=== PATIENT | female | born 1995 | race Caucasian/White ===

== ENCOUNTER 2018-08-12 01:16 | Emergency (ER) | payer OTHER ==
[~2018-08-12] VITALS: Ht 170.2 cm; Wt 61.2 kg
[~2018-08-12 01:16] MED LIST: ALLERGY SHOTS; IRON240 MG PO; PRENATAL VITAM1 EAC7 PO; TRI-LINYAH1 EACH PO
[2018-08-12] MEDS ORDERED: KEFLEX500 MG PO (01:34)
== END 2018-08-12 01:38 | disposition home or self-care (01) ==
LOC: ED 01:16
DX: N61.0 Mastitis without abscess (principal)
CPT/HCPCS: 99283

== ENCOUNTER 2019-01-26 13:24 | Emergency (ER) | payer OTHER ==
[~2019-01-26] VITALS: Ht 170.2 cm; Wt 61.2 kg
[~2019-01-26 13:24] MED LIST changes: +KEFLEX500 MG PO
[2019-01-26] MEDS ORDERED: MORPHINE SULFAT15 MG PO (18:34)
[2019-01-26] MEDS ORDERED: ZOFRAN4 MG PO (18:34)
[2019-01-26] MEDS ORDERED: LEXAPRO5 MG PO (19:07)
--- NOTE | 2019-01-27 14:08 | EKG ---
[facility] [address] [facility] [place], [place] [address] Signed Normal sinus rhythm Normal ECG No previous ECGs available Confirmed by CAROLE DELGADO DO ([id number]) on 01/27/2019 2:07:45 PM Electronically Signed By: CAROLE DELGADO DO 01/27/19 1408 PATIENT NAME: AZUL BASS Electrocardiogram DATE OF : [birth year] PHYSICIAN: CAROLE DELGADO DO REPORT #: [id number] REPORT IS CONFIDENTIAL AND NOT TO BE RELEASED WITHOUT AUTHORIZATION
== END 2019-01-26 18:44 | disposition home or self-care (01) ==
LOC: ED 13:24
DX: S22.22XA Fracture of body of sternum, initial encounter for closed fracture (principal); V89.2XXA Person injured in unspecified motor-vehicle accident, traffic, initial encounter; W22.10XA Striking against or struck by unspecified automobile airbag, initial encounter
CPT/HCPCS: 71046; 71120; 71260; 74177; 80053; 83690; 84484; 84703; 85025; 93005; 93010; 99285-25; J1885; J2060; J7030; Q9967

== ENCOUNTER 2019-11-10 23:42 | Inpatient (IN) | payer OTHER ==
[~2019-11-10] VITALS: Ht 170.2 cm; Wt 79.0 kg
[~2019-11-10 23:42] MED LIST changes: +LEXAPRO5 MG PO; +MORPHINE SULFAT15 MG PO; +ZOFRAN4 MG PO
[2019-11-11] MEDS ORDERED: PRENATAL VITAM1 EAC6 PO (00:16)
--- NOTE | 2019-11-11 01:17 | PR ---
[facility] [address] [facility] [place], [place] [address] Signed Progress Notes IP Datetime Report Generated by CPN: 11/11/2019 01:17 PROGRESS NOTES: [id number] Impression: Normal progression of labor Procedures: Artificial ROM; Scalp Electrode Plan: Continue present management; Anticipate Vaginal Delivery VITAL SIGNS: [id number] Vital Signs: Reviewed; Within Normal Limits EXAM: [id number] Dilatation: 7.0 Effacement: 90 Station: -2 Uterine Contractions: every 1-3 minutes MEMBRANES: [id number] Membrane Status: Ruptured Amniotic Fluid Color: Clear ROM Note: AROM without difficulty. Small amount clear fluid returned. Comments: Comfortable with Epidural Fetus A: [id number] FHR Baseline: 135 Variability: Moderate 6-25bpm Accelerations: 15X15 Decelerations: None Presentation: Vertex Fetus B: [id number] Signing Physician: Josie Morataya MD Copies: ~ *Electronically Signed* 11/11/19 0117 JOSIE MORATAYA MD PATIENT NAME: AZUL BASS PROGRESS NOTE DATE OF : [birth year] PHYSICIAN: JOSIE MORATAYA MD RPT #: [id number] REPORT IS CONFIDENTIAL AND NOT TO BE RELEASED WITHOUT AUTHORIZATION
--- NOTE | 2019-11-11 12:07 | PR ---
[facility] [address] [facility] [place] [address] Signed PP Progress Notes Datetime Report Generated by CPN: 11/11/2019 12:07 SUBJECTIVE: [id number] Pain: Within normal limits Nausea/Vomiting: Denies Vital Signs: [id number] Vital Signs: Reviewed; Within Normal Limits EXAM: [id number] Abdomen/Uterus: Normal Lochia: Normal Extremities: Normal IMPRESSION/PLAN/PROCEDURES: [id number] Impression: Normal progression Plan: Continue present management Procedures: None Progress Notes: Doing well, without complaint, wants to go home tomorrow morning. Signing Physician: Josie Morataya MD Copies: ~ *Electronically Signed* 11/11/19 1207 JOSIE MORATAYA MD PATIENT NAME: AZUL BASS PROGRESS NOTE DATE OF : [birth year] PHYSICIAN: JOSIE MORATAYA MD RPT #: [id number] REPORT IS CONFIDENTIAL AND NOT TO BE RELEASED WITHOUT AUTHORIZATION
--- NOTE | 2019-11-12 07:27 | PR ---
[facility] [address] [facility] [place] [address] Signed PP Progress Notes Datetime Report Generated by CPN: 11/12/2019 07:27 SUBJECTIVE: [id number] Pain: Within normal limits Nausea/Vomiting: Denies Vital Signs: [id number] Vital Signs: Reviewed; Within Normal Limits Notable Details: PP Hgb/Hct = 9.9/29.5 EXAM: [id number] Abdomen/Uterus: Normal Lochia: Normal Extremities: Normal IMPRESSION/PLAN/PROCEDURES: [id number] Impression: Normal progression Plan: Discharge Procedures: None Progress Notes: Doing well, without complaint, wants to go home. Signing Physician: Josie Morataya MD Copies: ~ *Electronically Signed* 11/12/19 0727 JOSIE MORATAYA MD PATIENT NAME: AZUL BASS PROGRESS NOTE DATE OF : [birth year] PHYSICIAN: JOSIE MORATAYA MD RPT #: [id number] REPORT IS CONFIDENTIAL AND NOT TO BE RELEASED WITHOUT AUTHORIZATION
== END 2019-11-12 08:55 | disposition home or self-care (01) | DRG 807 ==
LOC: FBCO 23:42 → FBC 11-11 00:07
PROVIDERS: ADMIT General Practice
PROC: 10E0XZZ Delivery of Products of Conception, External Approach (ICD-10-PCS; principal; 2019-11-11)
PROC: 0KQM0ZZ Repair Perineum Muscle, Open Approach (ICD-10-PCS; 2019-11-11)
PROC: 10907ZC Drainage of Amniotic Fluid, Therapeutic from Products of Conception, Via Natural or Artificial Opening (ICD-10-PCS; 2019-11-11)
PROC: 00HU33Z Insertion of Infusion Device into Spinal Canal, Percutaneous Approach (ICD-10-PCS; 2019-11-11)
PROC: 3E0R3BZ Introduction of Anesthetic Agent into Spinal Canal, Percutaneous Approach (ICD-10-PCS; 2019-11-11)
DX: O69.81X0 Labor and delivery complicated by cord around neck, without compression, not applicable or unspecified (principal); Z37.0 Single live birth; Z3A.38 38 weeks gestation of pregnancy; O70.1 Second degree perineal laceration during delivery; O99.52 Diseases of the respiratory system complicating childbirth; J30.2 Other seasonal allergic rhinitis; Z79.899 Other long term (current) drug therapy
CPT/HCPCS: 01960; 36415; 85027; A9270; J2590; J2795; J3010; J7121

== ENCOUNTER 2022-04-28 00:03 | Inpatient (IN) | payer OTHER ==
[~2022-04-28] VITALS: Ht 170.2 cm; Wt 80.3 kg
[~2022-04-28 00:03] MED LIST changes: +PRENATAL VITAM1 EAC6 PO
--- NOTE | 2022-04-28 09:30 | PR ---
[facility] [place] [facility] [address] [place], [place] [address] Signed Progress Notes IP Datetime Report Generated by CPN: 04/28/2022 09:29 PROGRESS NOTES: [id number] Impression: Normal Progression of Labor; Reassuring Heart Rate Procedures: Artificial ROM; Sterile Vag Exam Plan: Continue Present Management Informed Consent Obtain: Vaginal Delivery VITAL SIGNS: [id number] Vital Signs: Reviewed VS Notable Details: One slightly elevated BP as pt preparing for epidural EXAM: [id number] Dilatation: 3.5 Effacement: 75 Station: -2 Contractions: rare MEMBRANES: [id number] Comments: Pt seen and examined. Doing well. Comfortable w/ epidural. Discussed AROM and verbal consent obtained. Reviewed vertex well applied and bulging membranes. Cx very soft in consistency. AROM performed easily for moderate amount of meconium stained fluid. Reviewed w/ pt. Anticpate . Discussed indications for internal monitor or augmentation w/ pitocin. All questions answered. FETUS A: [id number] FHR Baseline: 130 Variability: Moderate 6-25bpm Accelerations: 15X15 Decelerations: None FHR Category: Category I Presentation: Vertex Comments on Fetus A: No evidence of metabolic acidosis FETUS B: [id number] Signing Physician: Nory Feliz DO Copies: ~ *Electronically Signed* 04/28/22 0929 NORY FELIZ (GAGANDEEP) DO PATIENT NAME: AZUL BASS PROGRESS NOTE DATE OF : [birth year] PHYSICIAN: NORY FELIZ) DO RPT #: [id number] REPORT IS CONFIDENTIAL AND NOT TO BE RELEASED WITHOUT AUTHORIZATION
--- NOTE | 2022-04-28 11:08 | PR ---
[facility] [address] [place], [place] [address] Signed Progress Notes IP Datetime Report Generated by CPN: 04/28/2022 11:08 PROGRESS NOTES: [id number] Impression: Normal Progression of Labor; Reassuring Heart Rate Procedures: Intrauterine Pressure Catheter; Sterile Vag Exam Plan: Continue Present Management Other Plans: Consider augmentation Informed Consent Obtain: Vaginal Delivery VITAL SIGNS: [id number] Vital Signs: Reviewed VS Notable Details: One slightly elevated BP as pt preparing for epidural EXAM: [id number] Dilatation: 3.5 Effacement: 75 Station: -2 Contractions: rare MEMBRANES: [id number] Comments: Pt seen and examined. Comfortable w/ epidural. No cervical change and rare CTXs. Recommended IUPC insertion and consider augmentation if needed. Pt agrees. IUPC placed w/out difficulty. All questions answered FETUS A: [id number] FHR Baseline: 130 Variability: Moderate 6-25bpm Accelerations: 15X15 Decelerations: None FHR Category: Category I Presentation: Vertex Comments on Fetus A: No evidence of metabolic acidosis FETUS B: [id number] Signing Physician: Nory Feliz DO Copies: ~ *Electronically Signed* 04/28/22 8494 NORY FELIZ (GAGANDEEP) DO PATIENT NAME: AZUL BASS PROGRESS NOTE DATE OF : [birth year] PHYSICIAN: NORY FELIZ) DO RPT #: [id number] REPORT IS CONFIDENTIAL AND NOT TO BE RELEASED WITHOUT AUTHORIZATION
--- NOTE | 2022-04-28 14:58 | PR ---
[facility] [address] [facility] [place], [place] [address] Signed Progress Notes IP Datetime Report Generated by CPN: 04/28/2022 14:58 PROGRESS NOTES: [id number] Impression: Normal Progression of Labor; Reassuring Heart Rate Procedures: Sterile Vag Exam Plan: Anticipate Vaginal Delivery Other Plans: Consider augmentation Informed Consent Obtain: Vaginal Delivery VITAL SIGNS: [id number] Vital Signs: Reviewed VS Notable Details: One slightly elevated BP as pt preparing for epidural EXAM: [id number] Dilatation: 10.0 Effacement: 100 Station: -1 Contractions: rare MEMBRANES: [id number] Comments: Pt seen and examined. Doing well. Complete and comfortable w/ epidural. Anticpate soon. FETUS A: [id number] FHR Baseline: 130 Variability: Moderate 6-25bpm Accelerations: 15X15 Decelerations: None FHR Category: Category I Presentation: Vertex Comments on Fetus A: No evidence of metabolic acidosis FETUS B: [id number] Signing Physician: Nory Feliz DO Copies: ~ *Electronically Signed* 04/28/22 1455 NORY FELIZ (GAGANDEEP) DO PATIENT NAME: BASSAZUL RECORD #: [id number] PROGRESS NOTE DATE OF : [birth year] PHYSICIAN: NORY FELIZ (GAGANDEEP) DO RPT #: [id number] REPORT IS CONFIDENTIAL AND NOT TO BE RELEASED WITHOUT AUTHORIZATION
== END 2022-04-29 16:25 | disposition home or self-care (01) | DRG 807 ==
LOC: FBC 00:03
PROVIDERS: ADMIT Obstetrics & Gynecology; ATTEND Obstetrics & Gynecology
PROC: 10E0XZZ Delivery of Products of Conception, External Approach (ICD-10-PCS; principal; 2022-04-28)
PROC: 0KQM0ZZ Repair Perineum Muscle, Open Approach (ICD-10-PCS; 2022-04-28)
PROC: 10H07YZ Insertion of Other Device into Products of Conception, Via Natural or Artificial Opening (ICD-10-PCS; 2022-04-28)
PROC: 3E0R3BZ Introduction of Anesthetic Agent into Spinal Canal, Percutaneous Approach (ICD-10-PCS; 2022-04-28)
PROC: 00HU33Z Insertion of Infusion Device into Spinal Canal, Percutaneous Approach (ICD-10-PCS; 2022-04-28)
PROC: 10907ZC Drainage of Amniotic Fluid, Therapeutic from Products of Conception, Via Natural or Artificial Opening (ICD-10-PCS; 2022-04-28)
DX: O99.02 Anemia complicating childbirth (principal); Z37.0 Single live birth; O70.1 Second degree perineal laceration during delivery; O77.0 Labor and delivery complicated by meconium in amniotic fluid; O43.123 Velamentous insertion of umbilical cord, third trimester; Z3A.39 39 weeks gestation of pregnancy; Z79.899 Other long term (current) drug therapy; D64.9 Anemia, unspecified
CPT/HCPCS: 36415; 85027; 86850; 86900; 86901; 88720; 92558; A9270; G0010; J2540; J2590